=== PATIENT | male | born 1965 | race Caucasian/White ===

== ENCOUNTER 2017-03-20 10:35 | Day surgery (SDC) | payer OTHER ==
[2017-03-19 08:51] VITALS: BMI 29.5
[~2017-03-20 10:35] MED LIST: GENTAMICIN 80MG PREMIX BAG IVPB ONE; ceFAZolin SODIUM 1 GM VIAL IVPB ONE
--- NOTE | 2017-03-20 10:45 | HP ---
History & Physical Update - History History: No Change - Physical Physical: No Change - Assessment Assessment: No Change - Plan Plan: No Change
--- NOTE | 2017-03-20 10:54 | OP ---
Operative Note - Note: Operative Date: 03/20/17 Pre-Operative Diagnosis: prostate cancer Operation: cystoscopy and prostate cryoablation Surgeon: Hunter Aguillon Anesthesiologist/FIXTURE RELAMPER: Valentino Diez Anesthesia: General Estimated Blood Loss (mls): 0 Drains & Tubes with Location: 18 [address] Operative Report Dictated: Yes
[2017-03-20] MEDS ORDERED: ONDANSETRON 4 MG/2 ML VIAL IVPUSH PRN (11:03)
[2017-03-20] MEDS ORDERED: PROMETHAZINE HCL 25 MG/1 ML VIAL IVPUSH PRN (11:03)
[2017-03-20] MEDS ORDERED: LACTATED RINGERS SOLUTION 1,000 ML IV SCH (11:15)
[2017-03-20] MEDS ORDERED: MIDAZOLAM HCL 2 MG/2 ML SINGLE DOSE VIAL ONE (11:19)
[2017-03-20] MEDS ORDERED: PROPOFOL 20 ML ONE (11:19)
[2017-03-20] MEDS ORDERED: LIDOCAINE HCL/PF 2% SDV 5ML VIAL ONE (11:21)
[2017-03-20] MEDS ORDERED: SODIUM CHLORIDE 0.9% P/F 10 ML VIAL IJ ONE (11:22)
[2017-03-20] MEDS ORDERED: ceFAZolin SODIUM 1 GM VIAL ONE ×2 (11:22)
[2017-03-20] MEDS ORDERED: ceFAZolin SODIUM 1 GM VIAL IVPB ONE (11:28)
[2017-03-20] MEDS ORDERED: DEXAMETHASONE SOD PHOSPHATE 4 MG/1 ML VIAL ONE (11:33)
[2017-03-20] MEDS ORDERED: SEVOFLURANE 250 ML BTL ONE (11:49)
[2017-03-20 13:45] VITALS: TEMP 98.2
[2017-03-20 15:47] VITALS: BP 134/81; PULSE 91
--- NOTE | 2017-03-21 07:30 | OP ---
DATE OF OPERATION: 03/20/2017 PREOPERATIVE DIAGNOSIS: Prostate cancer. POSTOPERATIVE DIAGNOSIS: Prostate cancer. PROCEDURE: Cystoscopy and prostate cryoablation. SURGEON: Hunter Mcdaniel MD OPTICAL DISPENSER: None. ANESTHESIA: General via laryngeal mask. ANESTHESIOLOGIST: Valentino Diez MD SPECIMENS: None. CULTURES: None. DRAINS: An 18-[place] Hinton catheter. ESTIMATED BLOOD LOSS: Negligible. COMPLICATIONS: None. DESCRIPTION OF PROCEDURE: The patient was brought into the operating room and placed on the operating room table in supine position. After administration of general sedation via laryngeal mask, sequential compression devices were placed and intravenous antibiotics were administered. The patient was placed in the dorsal lithotomy position. The perineum was shaved, and the perineum and genitals were prepped and draped in the usual sterile manner. An 18-[place] Hinton catheter was placed per urethra into the bladder, and the bladder was then filled with 300 mL of sterile normal saline. The Hinton catheter was then clamped. Now the transrectal ultrasound probe was inserted, and the planning for the cryoablation was done. Now 6 cryo probes were placed in the appropriate location. Two temperature sensors were placed, one at Denonvilliers' fascia and one at the external sphincter. Now the Hinton catheter was removed and flexible cystoscopy was performed. This demonstrated normal anterior urethra, normal prostatic urethra. The bladder was entered and thoroughly inspected. There were no foreign bodies, tumors, stone, inflammation. Both ureteral orifices were in the usual location with clear efflux bilaterally. There were no probes penetrating the bladder. Now the Super Stiff guidewire was passed through the cystoscope. The cystoscope was removed, and a urethra warmer was placed over the guidewire. The guidewire was removed, and urethral warming was started. Now, proper measurements had been taken, and the probes had set to the proper length of freezing, and the cryoablation was now done with two freeze/thaw cycles. At the end of the procedure, the probes were removed as was the urethral warmer and an 18-[place] Hinton catheter was placed. Direct pressure on the perineum was performed, and hemostasis was assured. The wound was sterilely dressed with 4 x 4 and Tegaderm. Urine was clear. He tolerated the procedure well and was transferred to recovery in stable condition. HUNTER MCDANIEL M.D. [id number]
== END 2017-03-20 15:49 | disposition home or self-care (01) ==
LOC: JASU-SURG 10:35
PROVIDERS: ATTEND Urology
PROC: 0V507ZZ Destruction of Prostate, Via Natural or Artificial Opening (ICD-10-PCS; principal; 2017-03-20 12:00)
PROC: 0V507ZZ Destruction of Prostate, Via Natural or Artificial Opening (ICD-10-PCS; 2017-03-20 12:00)
DX: C61 Malignant neoplasm of prostate (principal)
CPT/HCPCS: 55873; C2618; 94760